=== PATIENT | female | born 1970 | race Caucasian/White ===

== ENCOUNTER 2018-07-29 14:30 | Observation (INO) ==
[2018-07-29] MEDS ORDERED: Acetaminophen 500 MG Tablet PO PRN (21:07)
[2018-07-29] MEDS ORDERED: Morphine Inj 4 MG/ML Vial IV.PUSH PRN (21:07)
[2018-07-29] MEDS ORDERED: Dextrose 50% in Water 50 ML Vial IV.PUSH PRN (21:13)
[2018-07-29] MEDS: Heparin - SQ 10,000 UNITS/ML Vial SQ SCH (21:29)
[2018-07-29 22:38] LABS: Creatine Kinase 47 U/L (26-192)
[2018-07-30] MEDS: Insulin NovoLOG Aspart Correctional Sugar Inj SQ SCH ×2 (03:28→10:05)
[2018-07-30] MEDS: Heparin - SQ 10,000 UNITS/ML Vial SQ SCH (06:00)
[2018-07-30 07:21] LABS: Baso % (Auto) 0.8 % (0.0-2.0); Eos # (Auto) 0.1 th/mm3 (0.0-0.4); Eos % (Auto) 1.3 % (0.0-4.0); Hematocrit 34.9 % (35.0-46.0); Hemoglobin 11.2 gm/dL (11.6-15.3); Lymph # (Auto) 1.8 th/mm3 (1.0-4.8); Lymph % (Auto) 32.2 % (9.0-44.0); Mean Corpuscular HGB Conc 31.9 % (32.0-36.0); Mean Platelet Volume 9.6 fL (7.0-11.0); Mono # (Auto) 0.3 th/mm3 (0.0-0.9); Mono % (Auto) 4.9 % (0.0-8.0); Neut # (Auto) 3.4 th/mm3 (1.8-7.7); Neut % (Auto) 60.8 % (16.0-70.0); Platelet Count 274 th/mm3 (150-450); Red Blood Count 4.86 mil/mm3 (4.00-5.30); Red Cell Distribution Width 14.9 % (11.6-17.2); White Blood Count 5.6 th/mm3 (4.0-11.0)
[2018-07-30 07:23] LABS: Chloride 106 meq/L (98-107); Potassium 3.4 meq/L (3.5-5.1); Sodium 139 meq/L (136-145)
[2018-07-30 07:30] LABS: Anion Gap 11 meq/L (5-15); Blood Urea Nitrogen 8 mg/dL (7-18); Calcium 8.2 mg/dL (8.5-10.1); Carbon Dioxide 22.5 meq/L (21.0-32.0); Glucose,Random 164 mg/dL (74-106)
[2018-07-30 07:33] LABS: Glomerular Filtration Rate Greater Than 89 mL/min (>89)
[2018-07-30 07:45] LABS: Creatine Kinase 38 U/L (26-192)
[2018-07-30] MEDS ORDERED: Aspirin 325 MG Tablet PO SCH (09:00)
--- NOTE | 2018-07-30 11:17 | P.HPIM ---
History of Present Illness Service: The patient is a very pleasant 48-year-old female with past medical history of diabetes, chronic back pain and neck pain with history of surgery in her neck. Patient presented to the emergency room complaining of intermittent left-sided chest pain radiated to the neck, both shoulders and arms, also chest pain radiates to her nipple. Patient says she has chest pain for the last past week. Pain is not related to exertion however is worse with exertion. Quality of the pain is aching, sharp. No alleviating factors. Did not try any medications to relieve the pain prior to admission. Patient thinks the pain in her chest is related to her chronic neck problems, however she wants to make sure she does not have a heart attack. Her father had a heart attack at the age of 60. Patient denies any fever or chills, no cough. No nausea or diaphoresis. No urinary complaints. No abdominal pain. Denies focal deficit. Primary Care Physician: UNKNOWN Review of Systems Review of Systems: all other systems reviewed are negative [facility] Medical History Medical History Chronic back pain (Acute) Diabetes (Acute) Surgical History Surgical History History of neck surgery (Acute) No history of previous surgery (Acute) Family History Family History Father Myocardial infarction Social History Social History Substance History: No History of Abuse Second Hand Smoke Exposure: Yes Smoking Status: Current every day smoker Tobacco Type: Cigarettes How Often Do You Have a Drink Containing Alcohol: Never Medications and Allergies Allergies Allergy/AdvReac Type Severity Reaction Status Date / Time No Known Allergies Allergy Verified 07/29/18 14:38 Home Medications Medication Instructions Recorded Confirmed Type glipizide 10 mg PO BID 07/29/18 07/29/18 History insulin glargine [Lantus Solostar 20 unit SUBCUT DAILY 07/29/18 07/29/18 History U-100 Insulin] metformin 1,000 mg PO DAILY 07/29/18 07/29/18 History ranitidine HCl 150 mg PO DAILY 07/29/18 07/29/18 History Active Medications: Active Medications Acetaminophen (Tylenol) 500 mg PO Q4H PRN PRN Reason: HEADACHE Last Admin: 07/29/18 21:28 Dose: 500 mg Hydrocodone Bitart/Acetaminophen (Madison 7.5/325) 1 tab PO Q4H PRN PRN Reason: PAIN SCALE 1 TO 5 Aspirin (Aspirin) 325 mg PO DAILY [facility] Last Admin: 07/30/18 10:10 Dose: 325 mg Dextrose (D50w Vial) 50 ml IV.PUSH UNSCH PRN PRN Reason: PER HYPOGLYCEMIA PROTOCOL Glucagon (Glucagon Inj) 1 mg OTHER PRN PRN PRN Reason: for Hypoglycemia Protocol Heparin Sodium (Porcine) (Heparin Inj) 5,000 units SQ Q8H MAIKEL Last Admin: 07/30/18 06:00 Dose: 5,000 units Insulin Aspart (Novolog Insulin Correctional Sugar Inj) 0 unit SQ ACHS AND 3AM MAIKEL; Protocol Last Admin: 07/30/18 10:05 Dose: Not Given Morphine Sulfate (Morphine Inj) 2 mg IV.PUSH Q3H PRN PRN Reason: PAIN SCALE 6 TO 10 Last Admin: 07/30/18 03:05 Dose: 2 mg Nitroglycerin (Nitrostat Sl) 0.4 mg SL Q5M PRN PRN Reason: ANGINA Sodium Chloride (Ns Flush) 2 ml IV.FLUSH BID MAIKEL Last Admin: 07/30/18 10:10 Dose: 2 ml Sodium Chloride (Ns Flush) 2 ml IV.FLUSH PRN PRN PRN Reason: FLUSH AFTER USING IV ACCESS Physical Exam Vital signs: Last Vital Signs Temp 97.2 F L 07/30/18 08:00 Pulse 60 07/30/18 08:00 Resp 19 07/30/18 08:00 BP 100/56 L 07/30/18 08:00 Pulse Ox 98 07/30/18 08:00 Intake & Output 07/28/18 07/29/18 07/30/18 07/31/18 06:59 06:59 06:59 06:59 Intake Total 240 / 240 240 / 240 Output Total 300 / 300 Balance 240 / 240 -60 / -60 Narrative: GENERAL: Pleasant middle-aged female, well-nourished well-developed appears to not acute distress at this time. SKIN: Warm and dry. HEAD: Atraumatic. Normocephalic. EYES: Pupils equal and round. No scleral icterus. No injection or drainage. ENT: No nasal bleeding or discharge. Mucous membranes pink and moist. NECK: Trachea midline. No JVD. Pain on palpation of the neck and back. CARDIOVASCULAR: Regular rate and rhythm. RESPIRATORY: No accessory muscle use. Clear to auscultation. Breath sounds equal bilaterally. GASTROINTESTINAL: Abdomen soft, non-tender, nondistended. Hepatic and splenic margins not palpable. MUSCULOSKELETAL: Extremities without clubbing, cyanosis, or edema. No obvious deformities. NEUROLOGICAL: Awake and alert. No obvious cranial nerve deficits. Motor grossly within normal limits. Five out of 5 muscle strength in the arms and legs. Normal speech. PSYCHIATRIC: Appropriate mood and affect; insight and judgment normal. Results Labs CBC & Chem 7: 07/30/18 05:12 07/30/18 05:12 Captoney VTE Risk Assessment Captoney VTE Risk Assessment: No/Low Risk (score <= 1) Caprini Risk Assessment Model: Point Value = 1 Point Value = 2 Point Value = 3 Point Value = 5 Age 41-60 Minor surgery BMI > 25 kg/m2 Swollen legs Varicose veins or History of unexplained or recurrent spontaneous Oral contraceptives or hormone replacement Sepsis (< 1 month) Serious lung disease, including pneumonia (< 1 month) Abnormal pulmonary function Acute myocardial infarction Congestive heart failure (< 1 month) History of inflammatory bowel disease Medical patient at bed rest Age 61-74 Arthroscopic surgery Major open surgery (> 45 min) Laparoscopic surgery (> 45 min) Malignancy Confined to bed (> 72 hours) Immobilizing plaster cast Central venous access Age >= 75 History of VTE Family history of VTE Factor V Leiden Prothrombin [id number] Lupus anticoagulant Anticardiolipin antibodies Elevated serum homocysteine Heparin-induced thrombocytopenia Other congenital or acquired thrombophilia Stroke (< 1 month) Elective arthroplasty Hip, pelvis, or leg fracture Acute spinal cord injury (< 1 month) Prophylaxis Regimen: Total Risk Factor Score Risk Level Prophylaxis Regimen 0-1 Low Early ambulation 2 Moderate Order ONE of the following: *Sequential Compression Device (SCD) *Heparin 5000 units SQ BID 3-4 Higher Order ONE of the following medications: *Heparin 5000 units SQ TID *Enoxaparin/Lovenox 40 mg SQ daily (WT < 150 kg, CrCl > 30 mL/min) *Enoxaparin/Lovenox 30 mg SQ daily (WT < 150 kg, CrCl > 10-29 mL/min) *Enoxaparin/Lovenox 30 mg SQ BID (WT < 150 kg, CrCl > 30 mL/min) AND/OR *Sequential Compression Device (SCD) 5 or more Highest Order ONE of the following medications: *Heparin 5000 units SQ TID (Preferred with Epidurals) *Enoxaparin/Lovenox 40 mg SQ daily (WT < 150 kg, CrCl > 30 mL/min) *Enoxaparin/Lovenox 30 mg SQ daily (WT < 150 kg, CrCl > 10-29 mL/min) *Enoxaparin/Lovenox 30 mg SQ BID (WT < 150 kg, CrCl > 30 mL/min) AND *Sequential Compression Device (SCD) Assessment and Plan Plan Very pleasant 48-year-old female with past medical history of diabetes and chronic neck pain presents with chest pain Atypical chest pain Diabetes mellitus Chronic neck pain Family history of myocardial infarction Monitor on telemetry Troponins are negative by 3 Ordered Myoview stress test which is negative Pain is musculoskeletal likely patient to follow-up with her PCP and pain management as outpatient Discussed with the patient, nurse, patient family at bedside. Discharge plan Patient discharged home in stable condition to follow-up with PCP and consultants as outpatient Medications per med reconciliation's Diet diabetic diet Activity ad lucy. as tolerated Time spent at discharge more than 30 minutes
[2018-07-30] MEDS ORDERED: Regadenoson Inj 0.4 MG/5 ML Syringe IV.PUSH ONE (11:31)
--- NOTE | 2018-07-30 12:40 | NM ---
EXAM DATE: 07/30/2018 12:35 PM EST AGE/SEX: 48 years / Female INDICATIONS:Angina. . Atypical chest pain. CLINICAL DATA: This is the patient's initial encounter. Patient reports that signs and symptoms have been present for 1 day and indicates a pain score of 4/10. MEDICAL/SURGICAL HISTORY: Diabetes. Chronic back pain. None. COMPARISON: No prior exams available for comparison. DOSE: 8.6 mCi Tc 99m Myoview at stress 26.4 mCi [id number] at stress 0.4 mg Lexiscan STRESS SYMPTOMS: None. EJECTION FRACTION: 61 % TECHNIQUE: The patient underwent pharmacologic stress with infusion of prescribed dose. Continuous ECG tracing was monitored during stress. Gated SPECT imaging was performed after stress and conventi onal SPECT imaging was performed at rest. The examination was performed on a SPECT/CT scanner, both attenuation and non-corrected datasets were reviewed. FINDINGS: Distribution: The maximum perfused segment at stress is in the lateral wall. Perfusion Study: The pattern of perfusion at stress is within normal limits. Gated Study: There are intact wall motion and wall thickening without hypokinetic or dyskinetic segm ents. The ejection fraction is calculated at 61%. RISK CATEGORY: Low (<1% Annual Mortality Rate) CONCLUSION: 1. Negative examination. Electronically signed by: Donovan Nesbitt MD Board Certified Radiologist 07/30/2018 12:38 PM EST
--- NOTE | 2018-07-30 20:34 | ECG ---
Date Performed: 07/30/2018 Time Performed: 02:53:18 PTAGE: 48 years EKG: Sinus rhythm LOW QRS VOLTAGE IN PRECORDIAL LEADS POSSIBLE RIGHT VENTRICULAR CONDUCTION DELAY BORDERLINE ECG PREVIOUS TRACING : 07/29/2018 21.55 DOCTOR: Bharath Coburn Interpretating Date/Time 07/30/2018 20:32:14
--- NOTE | 2018-07-30 20:40 | ECG ---
Date Performed: 07/29/2018 Time Performed: 21:55:33 PTAGE: 48 years EKG: Sinus rhythm LOW QRS VOLTAGE IN PRECORDIAL LEADS BORDERLINE ECG NO PREVIOUS TRACING DOCTOR: Bharath Coburn Interpretating Date/Time 07/30/2018 20:37:58
== END 2018-07-30 14:19 | disposition home or self-care (01) ==
LOC: PHEDDLT 18:58 → PH3 18:58
PROVIDERS: ADMIT Hospitalist; ATTEND Hospitalist
CPT/HCPCS: 71010; 71045; 78452; 80048; 80053; 82550; 82948; 82962; 83520; 83880; 84484; 85025; 85379; 93005; 93017; 96372; 96374; 99291; A9502; G0378; J1644; J1815; J2270; J2785